=== PATIENT | male | born 1955 ===

== ENCOUNTER 2017-09-03 07:00 | Day surgery (SDC) | payer OTHER ==
[~2017-09-03] VITALS: Ht 182.9 cm; Wt 113.4 kg
[~2017-09-03 07:00] MED LIST: CATAFLAN; NEURONTIN300 MG PO; RESTORIL30 M1 PO; TOPROL XL25 M1 PO; VASOTEC5 MG PO
[2017-09-03] MEDS ORDERED: PERCOCET 5-3251 EACH PO (08:00)
[2017-09-03] MEDS ORDERED: COLACE100 MG PO (08:00)
[2017-09-03] MEDS ORDERED: CLONAZEPAM1 MG PO (08:00)
[2017-09-03] MEDS ORDERED: NEURONTIN800 MG PO (08:00)
[2017-09-03] MEDS ORDERED: AMOX-CLAV 875-1 EACH PO (08:00)
== END 2017-09-04 13:20 | disposition home or self-care (01) ==
LOC: CIR.AMB 07:00 → SURH 07:00 → O/R 10:16 → SURG 10:16 → SURH 12:30 → EDSTATUS 12:30 → CIR.AMB 09-04 13:20 → SURG 09-04 13:41 → O/R 09-04 13:41
DX: M48.07 Spinal stenosis, lumbosacral region (principal); I10 Essential (primary) hypertension